=== PATIENT | female | born 1965 | race Caucasian/White ===

== ENCOUNTER 2018-11-21 18:08 | Inpatient (IN) | payer MEDICAID ==
[~2018-11-21] VITALS: Ht 152.4 cm; Wt 81.3 kg
[2018-11-21] MEDS ORDERED: MORPHINE SULFATE 4 MG/ML CPJ (NOT FOR IM USE) IV STA (18:37)
[2018-11-21] MEDS ORDERED: SODIUM CHLORIDE 0.9% 1,000 ML IV ONE (18:37)
[2018-11-21] MEDS ORDERED: ONDANSETRON HCL 4MG/2ML INJ IV STA (18:37)
[2018-11-21] MEDS ORDERED: FAMOTIDINE 20MG/2ML VIAL IV ONE (18:45)
[2018-11-21 19:05] LABS: BASOPHILS % 0.1 % (0.0-2.0); EOSINOPHILS % 0.5 % (0.0-5.0); HEMATOCRIT. 39.5 % (42.0-52.0); HEMOGLOBIN. 13.3 g/dL (14.0-18.0); LYMPHOCYTES % 18.5 % (20.0-50.0); MEAN CORPUSCULAR HEMOGLOBIN 30.7 pg (28.0-32.0); MEAN CORPUSCULAR VOLUME 90.9 fL (80.0-94.0); MEAN PLATELET VOLUME 9.8 fl (7.4-10.4); MONOCYTES % 0.8 % (2.0-8.0); NEUTROPHILS % 80.1 % (40.0-76.0); PLATELET 196 x1000/uL (130-400); RED BLOOD CELL COUNT 4.35 mill/uL (4.7-6.1); RED CELL DISTRIBUTION WIDTH 12.8 % (11.6-14.6)
[2018-11-21 19:07] LABS: CHLORIDE 104 mEq/L (98-107)
[2018-11-21 19:10] LABS: INR 1.1; PARTIAL THROMBOPLASTIN TIME 23.1 sec (23.4-31.0); PROTHROMBIN TIME 10.7 sec (9.1-11.1)
[2018-11-21 21:40] LABS: CLARITY URINE CLEAR (CLEAR); COLOR URINE ORANGE (YELLOW); KETONES URINE NEGATIVE (NEGATIVE); LEUKOCYTE ESTERASE URINE NEGATIVE (NEGATIVE); NITRITE URINE NEGATIVE (NEGATIVE); OCCULT BLOOD URINE 3+ (NEGATIVE); PROTEIN URINE TRACE (NEGATIVE); SPECIFIC GRAVITY URINE 1.008 (1.005-1.030); UROBILINOGEN URINE 0.2 E.U./dL (0.2-1.0)
[2018-11-21] MEDS ORDERED: ONDANSETRON HCL 4MG/2ML INJ IV ONE (22:30)
[2018-11-21] MEDS ORDERED: DICYCLOMINE HCL 10MG/ML 2ML AMP IM ONE (22:30)
[2018-11-21] MEDS ORDERED: ASPIRIN 81MG TABLET PO ONE (22:30)
[2018-11-22] MEDS ORDERED: CLONIDINE 0.1MG TABLET PO PRN
[2018-11-22] MEDS ORDERED: ONDANSETRON HCL 4MG/2ML INJ IV PRN
[2018-11-22] MEDS ORDERED: ACETAMINOPHEN 325MG TABLET PO PRN
[2018-11-22] MEDS ORDERED: DOCUSATE SODIUM 100MG CAPSULE PO PRN
[2018-11-22] MEDS ORDERED: IPRATROPIUM/ALBUTEROL 0.5-3(2.5)MG/3ML NEB INH PRN
[2018-11-22] MEDS ORDERED: HYDROCODONE/ACETAMINOPHEN 5/325MG TABLET PO PRN
[2018-11-22] MEDS ORDERED: MAGNESIUM/ALUMINUM HYDROXIDE/SIMETHICONE 30ML UDC PO PRN
[2018-11-22 03:14] LABS: CHLORIDE 107 mEq/L (98-107)
[2018-11-22] MEDS ORDERED: SODIUM CHLORIDE 0.9% 1,000 ML IV SCH ×3 (04:13→15:00)
[2018-11-22 04:30] VITALS: BP 97/61
[2018-11-22 05:00] VITALS: BP 99/57
[2018-11-22 07:23] LABS: HEMATOCRIT. 34.6 % (36.0-48.0); HEMOGLOBIN. 11.7 g/dL (12.0-16.0); MEAN CORPUSCULAR HEMOGLOBIN 30.6 pg (28.0-32.0); MEAN CORPUSCULAR VOLUME 90.9 fL (81.0-99.0); MEAN PLATELET VOLUME 10.6 fl (7.4-10.4); PLATELET 189 x1000/uL (130-400); RED BLOOD CELL COUNT 3.81 mill/uL (4.2-5.4); RED CELL DISTRIBUTION WIDTH 12.8 % (11.6-14.6)
[2018-11-22 07:46] LABS: LDL CHOLESTEROL 76 mg/dL (5-100)
[2018-11-22 07:49] LABS: CREATINE KINASE 102 IU/L (26-192); HDL CHOLESTEROL 42 mg/dL (40-59)
[2018-11-22 07:51] LABS: CREATINE KINASE MB FRACTION < 1.0 ng/mL (0.5-3.6)
[2018-11-22 08:00] VITALS: BP 99/50
[2018-11-22 08:13] LABS: *AMPHETAMINES SCREEN URINE NEGATIVE (NEGATIVE); *BARBITURATES SCREEN URINE NEGATIVE (NEGATIVE); *BENZODIAZEPINES SCREEN URINE NEGATIVE (NEGATIVE); *COCAINE SCREEN URINE NEGATIVE (NEGATIVE); METHADONE URINE SCREEN NEGATIVE (NEGATIVE)
[2018-11-22 08:14] LABS: CANNABINOID URINE SCREEN NEGATIVE (NEGATIVE); OPIATES URINE SCREEN PRESUMTIVE POSITIVE (NEGATIVE); PHENCYCLIDINE URINE SCREEN NEGATIVE (NEGATIVE)
[2018-11-22] MEDS: ENOXAPARIN 40MG/0.4ML SYR SUBCUT SCH (08:50)
[2018-11-22] MEDS: OMEPRAZOLE 20MG CAPSULE EXTENDED RELEASE PO SCH (08:50)
[2018-11-22 11:24] LABS: PLATELET ESTIMATE NORMAL
[2018-11-22 12:00] VITALS: BP 96/56
[2018-11-22] MEDS ORDERED: ATOR10TA PO (12:28)
[2018-11-22] MEDS ORDERED: LISI10TA5 PO (12:28)
[2018-11-22 16:00] VITALS: BP 115/62
[2018-11-22 18:18] LABS: CREATINE KINASE 84 IU/L (26-192)
[2018-11-22 18:19] LABS: CREATINE KINASE MB FRACTION < 1.0 ng/mL (0.5-3.6)
[2018-11-22] MEDS: ATORVASTATIN CALCIUM 10MG TABLET PO SCH (18:22)
[2018-11-22] MEDS: LISINOPRIL 10MG TABLET PO SCH (18:22)
[2018-11-22 20:00] VITALS: BP 107/56
[2018-11-22 23:34] LABS: CLARITY URINE CLEAR (CLEAR); COLOR URINE YELLOW (YELLOW); KETONES URINE NEGATIVE (NEGATIVE); LEUKOCYTE ESTERASE URINE NEGATIVE (NEGATIVE); NITRITE URINE NEGATIVE (NEGATIVE); OCCULT BLOOD URINE 1+ (NEGATIVE); PROTEIN URINE NEGATIVE (NEGATIVE); SPECIFIC GRAVITY URINE 1.008 (1.005-1.030)
[2018-11-23] VITALS (7 sets, daily range): BP systolic 100–130; BP diastolic 53–75
[2018-11-23] MEDS: OMEPRAZOLE 20MG CAPSULE EXTENDED RELEASE PO SCH (06:21)
[2018-11-23 06:34] LABS: BASOPHILS % 0.6 % (0.0-2.0); EOSINOPHILS % 3.2 % (0.0-5.0); HEMATOCRIT. 34.4 % (36.0-48.0); HEMOGLOBIN. 11.4 g/dL (12.0-16.0); MEAN CORPUSCULAR HEMOGLOBIN 30.5 pg (28.0-32.0); MEAN PLATELET VOLUME 10.5 fl (7.4-10.4); MONOCYTES % 7.1 % (2.0-8.0); NEUTROPHILS % 60.1 % (40.0-76.0); PLATELET 174 x1000/uL (130-400); RED BLOOD CELL COUNT 3.74 mill/uL (4.2-5.4); RED CELL DISTRIBUTION WIDTH 13.3 % (11.6-14.6)
[2018-11-23 06:40] LABS: CHLORIDE 108 mEq/L (98-107)
[2018-11-23] MEDS: ATORVASTATIN CALCIUM 10MG TABLET PO SCH (08:33)
[2018-11-23] MEDS: ENOXAPARIN 40MG/0.4ML SYR SUBCUT SCH (08:34)
[2018-11-23] MEDS: LISINOPRIL 10MG TABLET PO SCH (08:34)
== END 2018-11-23 20:53 | disposition home or self-care (01) | DRG 532 ==
LOC: EDSEX 18:08 → ER 18:08 → 6WST 22:30 → EDBEDREQTM 22:41 → EDBEDREQ 22:41 → ENRESERV 11-22 02:59
PROVIDERS: ADMIT Internal Medicine; ATTEND Internal Medicine
DX: N94.6 Dysmenorrhea, unspecified (principal); R65.10 Systemic inflammatory response syndrome (SIRS) of non-infectious origin without acute organ dysfunction; D64.9 Anemia, unspecified; E11.9 Type 2 diabetes mellitus without complications; E78.00 Pure hypercholesterolemia, unspecified; E78.5 Hyperlipidemia, unspecified; R07.89 Other chest pain; I10 Essential (primary) hypertension; Z98.891 History of uterine scar from previous surgery
CPT/HCPCS: 36415; 71045; 74176; 80048; 80061; 80305; 82550; 82553; 82962; 83605; 83735; 83880; 84145; 84443; 84484; 93005; 93970; 96374; 99285; J0500; J1650; J2270; J2405; J3490; J7030

== ENCOUNTER 2019-04-06 22:49 | Emergency (ER) | payer MEDICAID ==
[~2019-04-06] VITALS: Ht 147.3 cm; Wt 90.0 kg
[~2019-04-06 22:49] MED LIST: ATOR10TA PO; LISI10TA5 PO
[2019-04-06] MEDS ORDERED: METOCLOPRAMIDE HCL 10MG/2ML VIAL IV ONE (23:30)
[2019-04-06] MEDS ORDERED: SODIUM CHLORIDE 0.9% 1,000 ML IV ONE (23:30)
[2019-04-06] MEDS ORDERED: DIPHENHYDRAMINE 50MG/ML VIAL IV ONE (23:30)
[2019-04-07 01:24] VITALS: BP 145/68
== END 2019-04-07 07:01 | disposition home or self-care (01) ==
LOC: ER 04-07 06:59
DX: G43.909 Migraine, unspecified, not intractable, without status migrainosus (principal); E78.00 Pure hypercholesterolemia, unspecified; I10 Essential (primary) hypertension; R11.0 Nausea; R42 Dizziness and giddiness
CPT/HCPCS: 81025; 96361; 96374; 96375; 99283; J1200; J2765; J7030